=== PATIENT | male | born 1985 | race Caucasian/White ===

== ENCOUNTER 2022-03-09 18:42 | Inpatient (IN) ==
[2022-03-09 19:45] LABS: Basophils % 0.2 %; Eosinophils # 0.2 K/mcL (0.0-0.6); Eosinophils % 2.7 %; Hematocrit 50.6 % (37.5-50.1); Hemoglobin 16.5 g/dL (12.9-16.9); Immature Granulocytes % 0.3 % (0-4); Lymphocytes # 1.4 K/mcL (0.6-4.6); Lymphocytes % 15.6 %; Mean Corpuscular HGB Conc 32.6 g/dL (31.6-35.5); Mean Corpuscular Hemoglobin 28.6 pg (28.0-33.3); Mean Corpuscular Volume 87.8 fL (83.0-100.0); Mean Platelet Volume 9.6 fL (9.4-12.4); Monocytes % 10.5 %; Neutrophils # 6.4 K/mcL (1.6-8.9); Platelet Count 246 K/mcL (140-400); Red Blood Count 5.76 M/mcL (4.19-5.50); Red Cell Distribution Width 12.7 % (11.5-14.5); Segmented Neutrophils % 70.7 %; White Blood Count 9.1 K/mcL (4.3-11.1)
[2022-03-09 20:04] LABS: BUN/Creatinine Ratio 16 (6-26); Blood Urea Nitrogen 14 mg/dL (6-20); Calcium 9.3 mg/dL (8.6-10.3); Carbon Dioxide 29 mEq/L (23-29); Chloride 101 mEq/L (98-107); Glucose 82 mg/dL (70-105); Osmolality,Calculated 284 (280-300); Potassium 3.7 mEq/L (3.5-5.1); Sodium 137 mEq/L (136-145); eGFR For African Americans > 60 (> 60); eGFR For Non-African Americans > 60 (> 60)
[2022-03-09] MEDS ORDERED: Naloxone 0.4 MG/ML INJ IVP PRN (20:46)
[2022-03-09] MEDS ORDERED: Melatonin 3 MG TABLET PO PRN (20:46)
[2022-03-09] MEDS ORDERED: Acetaminophen 325 MG TABLET PO PRN (20:46)
[2022-03-09] MEDS ORDERED: Ondansetron ODT 4 MG TAB.RAPDIS SL PRN (20:46)
[2022-03-09] MEDS ORDERED: Vancomycin 2,000 MG/520 ML IV.SOLN IVPB ONE (21:00)
[2022-03-09] MEDS ORDERED: *HR* HYDROmorphone (PF) 1 MG/ML SYRINGE IVP ONE (21:17)
[2022-03-10] MEDS: *HR* OxyCODONE Immed Rel 5 MG TABLET PO PRN ×3 (03:17→17:40)
[2022-03-10] MEDS: 0.9 % Sodium Chloride 1,000 ML IVC SCH ×2 (03:17→17:40)
[2022-03-10 05:49] LABS: Hematocrit 44.4 % (37.5-50.1); Mean Corpuscular HGB Conc 32.7 g/dL (31.6-35.5); Mean Corpuscular Hemoglobin 29.1 pg (28.0-33.3); Mean Platelet Volume 9.7 fL (9.4-12.4); Platelet Count 204 K/mcL (140-400); Red Blood Count 4.99 M/mcL (4.19-5.50); Red Cell Distribution Width 12.8 % (11.5-14.5); White Blood Count 7.6 K/mcL (4.3-11.1)
[2022-03-10 06:07] LABS: Hemoglobin 14.5 g/dL (12.9-16.9)
[2022-03-10 06:08] LABS: BUN/Creatinine Ratio 16 (6-26); Blood Urea Nitrogen 13 mg/dL (6-20); Calcium 8.8 mg/dL (8.6-10.3); Carbon Dioxide 28 mEq/L (23-29); Chloride 104 mEq/L (98-107); Chol/HDL Ratio 2.2 (0-4.9); Cholesterol 99 mg/dL (< 200); Glucose 125 mg/dL (70-105); HDL Cholesterol 45 mg/dL (40-59); LDL Cholesterol,Calculated 45 mg/dL (< 100); Osmolality,Calculated 282 (280-300); Potassium 3.9 mEq/L (3.5-5.1); Sodium 135 mEq/L (136-145); Triglycerides 47 mg/dL (< 150); eGFR For African Americans > 60 (> 60); eGFR For Non-African Americans > 60 (> 60)
[2022-03-10] MEDS: *HR* HYDROcodone/Acet 5/325 mg TABLET PO PRN ×3 (06:34→20:27)
[2022-03-10] MEDS: levoFLOXacin 750 MG/150 ML 750 MG/150 ML BAG IVPB SCH (09:20)
[2022-03-10] MEDS ORDERED: Baclofen 10 MG TABLET PO PRN (10:49)
[2022-03-10] MEDS ORDERED: hydrOXYzine pamoate 25 MG CAPSULE PO PRN ×2 (10:49)
[2022-03-10] MEDS: Vancomycin 2,000 MG/520 ML IV.SOLN IVPB SCH ×2 (11:03→22:38)
[2022-03-10] MEDS: carBAMazepine 200 MG TABLET PO SCH (11:08)
[2022-03-10] MEDS ORDERED: carBAMazepine 200 MG TABLET PO SCH (21:00)
[2022-03-11] MEDS: *HR* OxyCODONE Immed Rel 5 MG TABLET PO PRN ×2 (00:39→06:46)
[2022-03-11] MEDS: *HR* HYDROcodone/Acet 5/325 mg TABLET PO PRN (03:41)
[2022-03-11] MEDS ORDERED: *HR* OxyCODONE Immed Rel 5 MG TABLET PO ONE ×2 (05:01→05:02)
[2022-03-11] MEDS: carBAMazepine 200 MG TABLET PO SCH ×3 (07:52→20:20)
[2022-03-11] MEDS: levoFLOXacin 750 MG/150 ML 750 MG/150 ML BAG IVPB SCH (07:52)
[2022-03-11] MEDS ORDERED: Cholecalciferol (D-3) 1,000 UNIT (25MCG) TABLET PO SCH (09:00)
[2022-03-11] MEDS ORDERED: BuPROPion XL (24 HR) 150 MG TABLET PO SCH (09:00)
[2022-03-11] MEDS: Vancomycin 2,000 MG/520 ML IV.SOLN IVPB SCH ×2 (12:09→22:01)
[2022-03-11] MEDS ORDERED: *HR* Midazolam HCl 2 MG/2 ML VIAL ONE (16:39)
[2022-03-11] MEDS ORDERED: *HR* FentaNYL (PF) 100 MCG/2 ML VIAL ONE (16:39)
[2022-03-11] MEDS ORDERED: *HR* Succinylcholine 200 MG/10 ML VIAL IVP ONE (16:44)
[2022-03-11] MEDS ORDERED: Ondansetron 4 MG/2 ML VIAL ONE (17:04)
[2022-03-11] MEDS: *HR* HYDROmorphone PF 0.5 MG/0.5 ML SYRINGE IVP PRN ×2 (18:00→18:22)
[2022-03-11] MEDS ORDERED: *HR* OxyCODONE Immed Rel 5 MG TABLET PO PRN (19:06)
[2022-03-11] MEDS ORDERED: hydrOXYzine pamoate 25 MG CAPSULE PO PRN ×2 (19:06)
[2022-03-11] MEDS ORDERED: Baclofen 10 MG TABLET PO PRN (19:06)
[2022-03-11] MEDS ORDERED: Melatonin 3 MG TABLET PO PRN (19:06)
[2022-03-11] MEDS ORDERED: Ondansetron ODT 4 MG TAB.RAPDIS SL PRN (19:06)
[2022-03-11] MEDS ORDERED: Naloxone 0.4 MG/ML INJ IVP PRN (19:06)
[2022-03-12] MEDS: Acetaminophen 325 MG TABLET PO PRN ×2 (00:11→19:46)
[2022-03-12] MEDS ORDERED: levoFLOXacin 750 MG/150 ML 750 MG/150 ML BAG IVPB SCH (09:00)
[2022-03-12] MEDS: Cholecalciferol (D-3) 1,000 UNIT (25MCG) TABLET PO SCH (09:09)
[2022-03-12] MEDS: carBAMazepine 200 MG TABLET PO SCH ×3 (09:09→19:44)
[2022-03-12] MEDS: BuPROPion XL (24 HR) 150 MG TABLET PO SCH (09:09)
[2022-03-12] MEDS: Vancomycin 2,000 MG/520 ML IV.SOLN IVPB SCH (10:28)
[2022-03-12] MEDS: *HR* HYDROcodone/Acet 5/325 mg TABLET PO PRN ×2 (14:08→22:05)
[2022-03-12] MEDS: Sulfamethoxazole/Trimeth DS 1 EACH TABLET PO SCH (19:44)
[2022-03-13 07:00] VITALS: BP 113/71; PULSE 75; TEMP 97.6; O2SAT 98
[2022-03-13] MEDS: Acetaminophen 325 MG TABLET PO PRN (07:34)
[2022-03-13] MEDS: carBAMazepine 200 MG TABLET PO SCH ×2 (07:35→11:20)
[2022-03-13] MEDS: Cholecalciferol (D-3) 1,000 UNIT (25MCG) TABLET PO SCH (09:31)
[2022-03-13] MEDS: BuPROPion XL (24 HR) 150 MG TABLET PO SCH (09:31)
[2022-03-13] MEDS: Sulfamethoxazole/Trimeth DS 1 EACH TABLET PO SCH (09:31)
[2022-03-13] MEDS: *HR* HYDROcodone/Acet 5/325 mg TABLET PO PRN (11:20)
== END 2022-03-13 13:20 | disposition home or self-care (01) | DRG 580 ==
LOC: 4WAOSI 18:42 → EMEROOARM 18:42 → SUATTDRO 21:10 → 4WAOSI 21:37
PROVIDERS: ADMIT Family Medicine; ATTEND Internal Medicine